=== PATIENT | female | born 1990 | race Native Hawaiian/Other Pacific Islander ===

== ENCOUNTER 2021-09-17 13:15 | Emergency (ER) | payer MEDICAID ==
[~2021-09-17] VITALS: Ht 172.7 cm; Wt 86.0 kg
[2021-09-17 13:19] VITALS: BP 95/65
== END 2021-09-17 17:23 | disposition home or self-care (01) ==
LOC: EMS 13:15
DX: O23.593 Infection of other part of genital tract in pregnancy, third trimester (principal); Z3A.28 28 weeks gestation of pregnancy
CPT/HCPCS: 86592; 86694; 87070; 87255; 99283

== ENCOUNTER 2021-12-02 16:40 | Emergency (ER) | payer MEDICAID ==
[~2021-12-02] VITALS: Ht 172.7 cm; Wt 90.9 kg
[2021-12-02 16:47] VITALS: BP 143/74
== END 2021-12-02 18:48 | disposition left against medical advice (07) ==
LOC: EMS 16:45
DX: O99.013 Anemia complicating pregnancy, third trimester (principal); D64.9 Anemia, unspecified; Z3A.36 36 weeks gestation of pregnancy
CPT/HCPCS: 99281; Z7502